=== PATIENT | male | born 1985 ===

== ENCOUNTER → 2023-07-05 | Outpatient (CLI) | payer BC ==
[2023-07-05 14:53] LABS: Free Thyroxine 1.02 ng/dL (0.70-1.60)
[2023-07-05 15:11] LABS: Thyroid Stimulating Hormone 1.1 uIU/mL (0.360-4.800)
== END | disposition home or self-care (01) ==
LOC: LAB 13:38 → LAB SHORT 13:38
PROVIDERS: Internal Medicine
DX: F10.20 Alcohol dependence, uncomplicated (principal); R79.89 Other specified abnormal findings of blood chemistry
CPT/HCPCS: 82607; 82746; 84439; 84443; 84480